=== PATIENT | female | born 1985 | race Caucasian/White ===

== ENCOUNTER → 2020-03-27 09:50 | Outpatient (CLI) | payer OTHER, SELFPAY ==
[2020-03-27 10:36] LABS: HCG Quantitative /Beta subunit < 2.4 mIU/mL
== END ==
PROVIDERS: PCP Obstetrics & Gynecology; Referring Provider Obstetrics & Gynecology; Visit Provider Obstetrics & Gynecology
DX: Z32.00 Encounter for pregnancy test, result unknown (principal)
CPT/HCPCS: 36415; 84702